=== PATIENT | male | born 1965 | race Caucasian/White ===

== ENCOUNTER 2024-07-26 10:57 | Emergency (ER) | payer OTHER ==
[2024-07-26] MEDS ORDERED: Sodium Chloride 0.9% 10 ML Syringe FLUSH PRN (12:40)
[2024-07-26 13:07] LABS: HEMATOCRIT 39.4 % (38.4-49.7); HEMOGLOBIN 13.3 g/dL (12.9-16.9); MEAN CORPUSCULAR HGB CONC 33.8 g/dL (31.6-35.5); MEAN CORPUSCULAR VOLUME 88.9 fL (81.4-99.0); PLATELET COUNT,PLT 129 K/uL (130-375); RED BLOOD CELL COUNT 4.43 M/uL (4.14-5.76); WHITE BLOOD CELL COUNT,WBC 5.3 K/uL (3.2-11.0)
[2024-07-26 13:22] LABS: BAND ABSOLUTE MAN 0.48 K/uL; BAND PERCENT MAN 9 % (5-11); LYMPHOCYTES ABSOLUTE MAN 2.76 K/uL (0.8-3.3); LYMPHOCYTES PERCENT MAN 52 % (24-44); MONOCYTES PERCENT MAN 17 % (2-6); NEUTROPHILS ABSOLUTE MAN 1.17 K/uL (1.0-7.6); SEG NEUTROPHILS PERCENT MAN 22 % (36-66)
[2024-07-26 13:29] LABS: ANION GAP 5.9 mmol/L (5.0-14.0); CALCIUM 9.3 mg/dL (8.5-10.1); CREATININE 0.9 mg/dL (0.8-1.3); EST CRCL DRUG DOSING (CG) 103.57 mL/min; POTASSIUM,K 4.2 mmol/L (3.6-5.2)
[2024-07-26] MEDS: Ondansetron 4 MG/2 ML SDV IVPUSH ONE (14:24)
[2024-07-26] MEDS: Codeine/guaiFENesin 10-100 MG/5 ML Syrup 5 ML Cup PO ONE (14:24)
[2024-07-26] MEDS: Sodium Chloride 0.9% 1,000 ML IV ONE (14:24)
== END 2024-07-26 16:51 | disposition home or self-care (01) ==
LOC: JP.ED 10:57
DX: U07.1 COVID-19 (principal); R11.0 Nausea; I10 Essential (primary) hypertension; E78.00 Pure hypercholesterolemia, unspecified; E11.9 Type 2 diabetes mellitus without complications; Z88.0 Allergy status to penicillin; Z79.84 Long term (current) use of oral hypoglycemic drugs; Z79.899 Other long term (current) drug therapy
CPT/HCPCS: 36415; 71046; 71046-26; 71250; 71250-26; 80048; 84484; 85025; 93005; 96361; 96374; 99285-25; A9270-GY; J2405; J7030

== ENCOUNTER 2025-01-21 08:10 | Day surgery (SDC) | payer OTHER ==
[~2025-01-21 08:10] MED LIST: Midazolam 1 MG/ML 2 ML SDV ONE; Propofol 200 MG/20 ML SDV ONE; fentaNYL 50 MCG/ML SDV ONE
[2025-01-21] MEDS: Lactated Ringers 1,000 ML IV SCH (08:48)
== END 2025-01-21 11:09 | disposition home or self-care (01) ==
LOC: JP.SDS 08:10
PROVIDERS: ATTEND Surgery
DX: Z12.11 Encounter for screening for malignant neoplasm of colon (principal); I10 Essential (primary) hypertension; F31.9 Bipolar disorder, unspecified; E11.9 Type 2 diabetes mellitus without complications; Z88.8 Allergy status to other drugs, medicaments and biological substances
CPT/HCPCS: 45378; J2250; J2704; J3010; J7120